=== PATIENT | female | born 1975 | race Caucasian/White ===

== ENCOUNTER 2022-05-18 20:02 | Emergency (ER) | payer SELFPAY ==
[~2022-05-18] VITALS: Ht 167.6 cm; Wt 79.5 kg
[2022-05-18 20:46] VITALS: BP 142/80
== END 2022-05-18 20:52 | disposition home or self-care (01) ==
LOC: EMS 20:05
DX: T63.691A Toxic effect of contact with other venomous marine animals, accidental (unintentional), initial encounter (principal); Y92.89 Other specified places as the place of occurrence of the external cause
CPT/HCPCS: 99281; Z7502